=== PATIENT | male | born 1990 | race Caucasian/White ===

== ENCOUNTER → 2019-05-08 | Outpatient (REF) | payer BC, MEDICAID ==
[~2019-05-08] MED LIST: HYDR-3713 PO; MIRA3350 PO; TAMS0.4C2 PO
== END ==
LOC: M LAB REF 11:17
PROVIDERS: ATTEND Physician Assistant
DX: B07.9 Viral wart, unspecified (principal)

== ENCOUNTER 2021-12-27 10:14 | Emergency (ER) | payer BC, OTHER ==
[~2021-12-27] VITALS: Ht 170.2 cm; Wt 106.8 kg
[2021-12-27] MEDS ORDERED: IBUP-1022 PO (10:34)
[2021-12-27] MEDS ORDERED: KETOROLAC TROMETHAMINE 10 MG TAB PO ONE (12:10)
[2021-12-27 12:50] LABS: BASO % 0.5 % (0.0-1.0); EOS # 0.1 10^3/uL (0.0-0.5); EOS % 1.3 % (0.0-3.0); HEMATOCRIT 50.2 % (42.0-52.0); HEMOGLOBIN 16.6 g/dl (13.5-17.5); LYMPH # 1.6 10^3/uL (1.5-5.0); LYMPH % 29.3 % (24.0-44.0); MEAN CORPUSCULAR HEMOGLOBIN 29.6 pg (27.0-33.0); MEAN CORPUSCULAR HGB CONC 33.1 g/dl (32.0-36.5); MEAN CORPUSCULAR VOLUME 89.5 fl (80.0-96.0); MONO # 0.5 10^3/uL (0.0-0.8); MONO % 8.3 % (2.0-8.0); NEUTROPHILS # 3.4 10^3/uL (1.5-8.5); NEUTROPHILS % 60.1 % (36.0-66.0); PLATELET COUNT, AUTOMATED 190 10^3/uL (150-450); RED BLOOD COUNT 5.61 10^6/uL (4.30-6.10); WHITE BLOOD COUNT 5.6 10^3/uL (4.0-10.0)
[2021-12-27 13:28] LABS: BLOOD UREA NITROGEN 18 MG/DL (7-18); CALCIUM LEVEL 9.2 MG/DL (8.5-10.1); CARBON DIOXIDE LEVEL 28 MEQ/L (21-32); CHLORIDE LEVEL 105 MEQ/L (98-107); CREATININE FOR GFR 1.06 MG/DL (0.70-1.30); FREE THYROXINE INDEX 3.3 % (1.4-3.8); GLOMERULAR FILTRATION RATE > 60.0 (>60); GLUCOSE, FASTING 97 MG/DL (70-100); POTASSIUM SERUM 4.1 MEQ/L (3.5-5.1); SODIUM LEVEL 137 MEQ/L (136-145); T UPTAKE 34 % (33-40); THYROXINE (T4) 9.6 UG/DL (4.5-12.0)
[2021-12-27 14:20] VITALS: BP 144/84
== END 2021-12-27 14:35 | disposition home or self-care (01) ==
LOC: M ED 10:14
DX: R51.9 Headache, unspecified (principal)

== ENCOUNTER 2022-10-28 05:54 | Emergency (ER) | payer OTHER ==
[~2022-10-28] VITALS: Ht 170.2 cm; Wt 111.3 kg
[~2022-10-28 05:54] MED LIST changes: +IBUP-1022 PO
[2022-10-28] MEDS ORDERED: KETOROLAC 60MG 2ML VIAL IM ONE (08:10)
[2022-10-28] MEDS ORDERED: IBUP-1022 PO (10:07)
[2022-10-28] MEDS ORDERED: METH-1164 PO (10:07)
[2022-10-28 10:22] VITALS: BP 125/82; TEMP 97; O2SAT 97
== END 2022-10-28 10:28 | disposition home or self-care (01) ==
LOC: M ED 05:54
DX: M54.50 Low back pain, unspecified (principal); Z87.442 Personal history of urinary calculi; Z88.0 Allergy status to penicillin
CPT/HCPCS: 96372; 99283; J1885